=== PATIENT | female | born 1970 ===

== ENCOUNTER 2020-07-15 15:08 | Inpatient (IN) | payer OTHER ==
[~2020-07-15] VITALS: Ht 160 cm; Wt 87.3 kg
[2020-07-15] MEDS ORDERED: AZITHROMYCIN 500 MG in SODIUM CHLORIDE 0.9% 250 ML IV ONE (17:30)
[2020-07-15] MEDS ORDERED: CEFTRIAXONE PMX 1GM/50ML 50 ML IV ONE (17:30)
[2020-07-15] MEDS ORDERED: CEFTRIAXONE PMX 1GM/50ML 50 ML ONE (17:42)
[2020-07-15 17:48] LABS: BASOPHILS % (AUTO) 0 % (0-1); EOSINOPHILS % (AUTO) 0 % (1-7); LYMPHOCYTES % (AUTO) 11 % (22-44); MEAN CORPUSCULAR HGB CONC 30.5 g/dL (32.4-35.8); MEAN PLATELET VOLUME 8.1 fL (7.4-10.4); MONOCYTES % (AUTO) 7 % (2-9); NEUTROPHILS % (AUTO) 82 % (42-75); PLATELET COUNT 354 x10^3/uL (130-400); RED CELL DISTRIBUTION WIDTH 22.1 % (9.6-15.2)
[2020-07-15 17:51] LABS: ANION GAP 8 mmol/L (5-15); CALCIUM 8.5 mg/dL (8.5-10.1); CHLORIDE 106 mmol/L (98-107)
[2020-07-15 17:54] LABS: ALANINE AMINOTRANSFERASE 27 U/L (12-78); ALKALINE PHOSPHATASE 133 U/L (45-117); BILIRUBIN,TOTAL 0.4 mg/dL (0.2-1.0); CREATININE 0.81 mg/dL (0.55-1.02); TOTAL PROTEIN 7.4 g/dL (6.4-8.2)
[2020-07-15 18:30] LABS: MD MORPH REVIEW ONLY
[2020-07-15 18:31] LABS: ANISOCYTOSIS 1+; MICROCYTOSIS 1+; OVALOCYTES 1+; POLYCHROMASIA 1+
[2020-07-15 18:32] LABS: <PLATELET ESTIMATE> ADEQUATE; <PLT MORPHOLOGY> NORMAL PLT MORPH; TEAR DROPS 1+
[2020-07-15] MEDS ORDERED: PHARMACY MAY ADJ FOR RENAL FX MC PRN (19:30)
[2020-07-15] MEDS ORDERED: ADAL40KI SQ (20:01)
[2020-07-15] MEDS ORDERED: METH2.5T PO (20:01)
[2020-07-15] MEDS ORDERED: IRON1TAB60 PO (20:01)
[2020-07-15] MEDS ORDERED: FLUO10CA15 PO (20:02)
[2020-07-15 20:51] VITALS: BP 140/81
[2020-07-15] MEDS: ASCORBIC ACID 500 MG TABLET PO SCH (21:25)
[2020-07-15] MEDS: ACETAMINOPHEN 325 MG TABLET PO PRN (21:25)
[2020-07-15] MEDS ORDERED: POTASSIUM CHLORIDE 20 MEQ TAB.ER.PRT PO ONE (22:00)
[2020-07-15 22:18] LABS: % IRON SATURATION 5 % (20-55); IRON LEVEL 24 mcg/dL (50-170); TOTAL IRON BINDING CAPACITY 440 mcg/dL (250-450)
[2020-07-15] MEDS ORDERED: METHOTREXATE 2.5 MG TABLET PO SCH (22:30)
[2020-07-15] MEDS: methylPREDNISolone SOD SUCC 40 MG/ML IV SCH (22:33)
[2020-07-16 02:00] VITALS: BP 122/78
[2020-07-16 05:08] LABS: BASOPHILS % (AUTO) 0 % (0-1); EOSINOPHILS % (AUTO) 0 % (1-7); LYMPHOCYTES % (AUTO) 6 % (22-44); MEAN CORPUSCULAR HEMOGLOBIN 22.1 pg (27.0-34.8); MEAN CORPUSCULAR HGB CONC 30.9 g/dL (32.4-35.8); MEAN PLATELET VOLUME 7.6 fL (7.4-10.4); MONOCYTES % (AUTO) 2 % (2-9); NEUTROPHILS % (AUTO) 92 % (42-75); PLATELET COUNT 344 x10^3/uL (130-400); RED BLOOD COUNT 4.33 x10^6/uL (3.82-5.3)
[2020-07-16 05:14] LABS: ALBUMIN 3.1 g/dL (3.4-5.0); ANION GAP 6 mmol/L (5-15); CALCIUM 8.7 mg/dL (8.5-10.1); CHLORIDE 110 mmol/L (98-107)
[2020-07-16 05:21] LABS: MD SCAN
[2020-07-16 05:22] LABS: ALANINE AMINOTRANSFERASE 25 U/L (12-78); ALKALINE PHOSPHATASE 123 U/L (45-117); BILIRUBIN,TOTAL 0.3 mg/dL (0.2-1.0); CREATININE 0.54 mg/dL (0.55-1.02); TOTAL PROTEIN 7.3 g/dL (6.4-8.2)
[2020-07-16] MEDS: methylPREDNISolone SOD SUCC 40 MG/ML IV SCH (05:51)
[2020-07-16] MEDS: FLUTICASONE/VILANTEROL 100-25MCG/INH INH SCH (06:37)
[2020-07-16 07:55] VITALS: BP 126/76
[2020-07-16] MEDS: ASCORBIC ACID 500 MG TABLET PO SCH ×2 (08:49→20:35)
[2020-07-16] MEDS: ENOXAPARIN 40 MG/0.4 ML SQ SCH (08:49)
[2020-07-16] MEDS: ZINC SULFATE 220 MG CAPSULE PO SCH (08:49)
[2020-07-16] MEDS: FLUOXETINE 10 MG CAP PO SCH (08:49)
[2020-07-16] MEDS: ACETAMINOPHEN 325 MG TABLET PO PRN (11:24)
[2020-07-16 12:06] VITALS: BP 121/62
[2020-07-16] MEDS ORDERED: OMNIPAQUE 350 MG/ML, 100ML BOTTLE ONE (13:22)
[2020-07-16] MEDS ORDERED: CEFTRIAXONE PMX 1GM/50ML 50 ML IV SCH (18:00)
[2020-07-16] MEDS ORDERED: AZITHROMYCIN 500 MG in SODIUM CHLORIDE 0.9% 250 ML IV SCH (18:30)
[2020-07-16 19:46] VITALS: BP 125/83
[2020-07-16] MEDS: MELATONIN 5 MG TABLET PO PRN (21:21)
[2020-07-17 00:57] VITALS: BP 132/74
[2020-07-17 06:21] LABS: ANION GAP 6 mmol/L (5-15); CALCIUM 8.8 mg/dL (8.5-10.1); CHLORIDE 109 mmol/L (98-107)
[2020-07-17 06:42] LABS: BASOPHILS % (AUTO) 0 % (0-1); EOSINOPHILS % (AUTO) 1 % (1-7); LYMPHOCYTES % (AUTO) 17 % (22-44); MEAN CORPUSCULAR HEMOGLOBIN 22.2 pg (27.0-34.8); MEAN CORPUSCULAR HGB CONC 30.6 g/dL (32.4-35.8); MONOCYTES % (AUTO) 4 % (2-9); NEUTROPHILS % (AUTO) 79 % (42-75); PLATELET COUNT 351 x10^3/uL (130-400); RED BLOOD COUNT 4.08 x10^6/uL (3.82-5.3); RED CELL DISTRIBUTION WIDTH 21.4 % (9.6-15.2)
[2020-07-17 06:44] LABS: MD NO
[2020-07-17 07:01] VITALS: BP 117/77
[2020-07-17] MEDS: FLUTICASONE/VILANTEROL 100-25MCG/INH INH SCH (09:30)
[2020-07-17] MEDS: FLUOXETINE 10 MG CAP PO SCH (09:59)
[2020-07-17] MEDS: AMPICILLIN/SULBACTAM 3 GM in SODIUM CHLORIDE 0.9% 100 ML IV SCH ×3 (09:59→21:16)
[2020-07-17] MEDS: ASCORBIC ACID 500 MG TABLET PO SCH ×2 (09:59→21:16)
[2020-07-17] MEDS ORDERED: POTASSIUM CHLORIDE 20 MEQ TAB.ER.PRT PO ONE (10:00)
[2020-07-17] MEDS: ZINC SULFATE 220 MG CAPSULE PO SCH (10:00)
[2020-07-17] MEDS: ENOXAPARIN 40 MG/0.4 ML SQ SCH (10:01)
[2020-07-17] MEDS: ACETAMINOPHEN 325 MG TABLET PO PRN ×2 (10:02→18:53)
[2020-07-17 12:45] VITALS: BP 107/71
[2020-07-17] MEDS: DOXYCYCLINE 100MG TABLET PO SCH ×2 (12:57→21:16)
[2020-07-17] MEDS: FERROUS SULFATE 325 MG TABLET PO SCH (16:33)
[2020-07-17] MEDS ORDERED: SODIUM CHLORIDE INHALATION 7%, 4 ML NPPB ONE (16:55)
[2020-07-17 19:24] VITALS: BP 118/78
[2020-07-17] MEDS: MELATONIN 5 MG TABLET PO PRN (21:17)
[2020-07-17] MEDS: HYDROcodone/APAP 5/325 TABLET PO PRN (21:21)
[2020-07-18 00:26] VITALS: BP 119/77
[2020-07-18] MEDS: AMPICILLIN/SULBACTAM 3 GM in SODIUM CHLORIDE 0.9% 100 ML IV SCH ×4 (03:21→20:08)
[2020-07-18] MEDS: ASCORBIC ACID 500 MG TABLET PO SCH ×2 (07:30→20:15)
[2020-07-18] MEDS: ZINC SULFATE 220 MG CAPSULE PO SCH (07:30)
[2020-07-18] MEDS: ENOXAPARIN 40 MG/0.4 ML SQ SCH (07:31)
[2020-07-18] MEDS: DOXYCYCLINE 100MG TABLET PO SCH ×2 (07:31→20:15)
[2020-07-18] MEDS: HYDROcodone/APAP 5/325 TABLET PO PRN ×3 (07:31→20:15)
[2020-07-18] MEDS: FLUOXETINE 10 MG CAP PO SCH (07:31)
[2020-07-18 07:58] VITALS: BP 113/73
[2020-07-18 08:32] LABS: ANION GAP 6 mmol/L (5-15); CALCIUM 8.5 mg/dL (8.5-10.1); CHLORIDE 104 mmol/L (98-107); CREATININE 0.59 mg/dL (0.55-1.02)
[2020-07-18] MEDS: FLUTICASONE/VILANTEROL 100-25MCG/INH INH SCH (09:00)
[2020-07-18 12:23] VITALS: BP 116/79
[2020-07-18] MEDS: FERROUS SULFATE 325 MG TABLET PO SCH (16:23)
[2020-07-18] MEDS: MELATONIN 5 MG TABLET PO PRN (20:15)
[2020-07-18 20:17] VITALS: BP 106/70
[2020-07-19 01:56] VITALS: BP 101/65
[2020-07-19] MEDS: AMPICILLIN/SULBACTAM 3 GM in SODIUM CHLORIDE 0.9% 100 ML IV SCH ×4 (03:45→20:36)
[2020-07-19 07:00] VITALS: BP 125/72
[2020-07-19] MEDS: DOXYCYCLINE 100MG TABLET PO SCH ×2 (10:47→20:37)
[2020-07-19] MEDS: ZINC SULFATE 220 MG CAPSULE PO SCH (10:47)
[2020-07-19] MEDS: ASCORBIC ACID 500 MG TABLET PO SCH ×2 (10:47→20:36)
[2020-07-19] MEDS: ENOXAPARIN 40 MG/0.4 ML SQ SCH (10:47)
[2020-07-19] MEDS: FLUOXETINE 10 MG CAP PO SCH (10:47)
[2020-07-19 12:14] VITALS: BP 111/62
[2020-07-19] MEDS: FERROUS SULFATE 325 MG TABLET PO SCH (15:53)
[2020-07-19] MEDS: HYDROcodone/APAP 5/325 TABLET PO PRN ×2 (15:53→20:37)
[2020-07-19 19:31] VITALS: BP 96/66
[2020-07-19] MEDS: MELATONIN 5 MG TABLET PO PRN (20:37)
[2020-07-20 01:36] VITALS: BP 105/69
[2020-07-20] MEDS: AMPICILLIN/SULBACTAM 3 GM in SODIUM CHLORIDE 0.9% 100 ML IV SCH ×4 (03:36→22:05)
[2020-07-20] MEDS: HYDROcodone/APAP 5/325 TABLET PO PRN ×3 (03:36→20:07)
[2020-07-20 07:11] VITALS: BP 109/74
[2020-07-20] MEDS: FLUTICASONE/VILANTEROL 100-25MCG/INH INH SCH (09:00)
[2020-07-20] MEDS: ENOXAPARIN 40 MG/0.4 ML SQ SCH (10:00)
[2020-07-20] MEDS: DOXYCYCLINE 100MG TABLET PO SCH ×2 (10:00→20:01)
[2020-07-20] MEDS: ASCORBIC ACID 500 MG TABLET PO SCH (10:00)
[2020-07-20] MEDS: FLUOXETINE 10 MG CAP PO SCH (10:00)
[2020-07-20] MEDS: ZINC SULFATE 220 MG CAPSULE PO SCH (10:00)
[2020-07-20 12:25] VITALS: BP 115/78
[2020-07-20] MEDS: FERROUS SULFATE 325 MG TABLET PO SCH (16:47)
[2020-07-20] MEDS: SULFAMETH./TRIMETHOPRIM 20 ML in DEXTROSE 5% 500 ML IV SCH (18:38)
[2020-07-20 19:28] VITALS: BP 106/70
[2020-07-21 00:37] VITALS: BP 109/72
[2020-07-21] MEDS: SULFAMETH./TRIMETHOPRIM 20 ML in DEXTROSE 5% 500 ML IV SCH ×4 (00:39→20:22)
[2020-07-21] MEDS: AMPICILLIN/SULBACTAM 3 GM in SODIUM CHLORIDE 0.9% 100 ML IV SCH ×4 (04:52→22:37)
[2020-07-21] MEDS: FLUTICASONE/VILANTEROL 100-25MCG/INH INH SCH (08:03)
[2020-07-21 08:51] VITALS: BP 121/64
[2020-07-21] MEDS: DEXTROSE 5% IV SCH (10:13)
[2020-07-21] MEDS: FLUOXETINE 10 MG CAP PO SCH (10:13)
[2020-07-21] MEDS: VORICONAZOLE IV SCH (10:13)
[2020-07-21] MEDS: ENOXAPARIN 40 MG/0.4 ML SQ SCH (10:13)
[2020-07-21] MEDS: DOXYCYCLINE 100MG TABLET PO SCH ×2 (10:13→20:35)
[2020-07-21] MEDS: HYDROcodone/APAP 5/325 TABLET PO PRN (10:14)
[2020-07-21] MEDS: ONDANSETRON 2MG/ML, 2ML IVPush PRN ×2 (12:36→18:34)
[2020-07-21 15:42] VITALS: BP 136/81
[2020-07-21] MEDS: FERROUS SULFATE 325 MG TABLET PO SCH (17:05)
[2020-07-21 20:00] VITALS: BP 134/83
[2020-07-22] MEDS: MELATONIN 5 MG TABLET PO PRN (00:23)
[2020-07-22] MEDS: DEXTROSE 5% IV SCH (00:58)
[2020-07-22] MEDS: VORICONAZOLE IV SCH (00:58)
[2020-07-22 01:47] VITALS: BP 123/79
[2020-07-22] MEDS: SULFAMETH./TRIMETHOPRIM 20 ML in DEXTROSE 5% 500 ML IV SCH ×4 (03:19→23:17)
[2020-07-22] MEDS: AMPICILLIN/SULBACTAM 3 GM in SODIUM CHLORIDE 0.9% 100 ML IV SCH ×4 (04:47→23:17)
[2020-07-22 06:45] VITALS: BP 126/82
[2020-07-22] MEDS: DOXYCYCLINE 100MG TABLET PO SCH ×2 (09:08→20:26)
[2020-07-22] MEDS: VORICONAZOLE 200 MG TABLET PO SCH ×2 (09:08→20:26)
[2020-07-22] MEDS: FLUOXETINE 10 MG CAP PO SCH (09:09)
[2020-07-22] MEDS: ENOXAPARIN 40 MG/0.4 ML SQ SCH (09:09)
[2020-07-22] MEDS: FLUTICASONE/VILANTEROL 100-25MCG/INH INH SCH (09:34)
[2020-07-22 10:39] LABS: BASOPHILS % (AUTO) 0 % (0-1); EOSINOPHILS % (AUTO) 0 % (1-7); LYMPHOCYTES % (AUTO) 7 % (22-44); MEAN CORPUSCULAR HGB CONC 30.6 g/dL (32.4-35.8); MEAN PLATELET VOLUME 7.5 fL (7.4-10.4); MONOCYTES % (AUTO) 4 % (2-9); NEUTROPHILS % (AUTO) 89 % (42-75); PLATELET COUNT 474 x10^3/uL (130-400); RED CELL DISTRIBUTION WIDTH 21.3 % (9.6-15.2)
[2020-07-22 10:40] LABS: MD NO
[2020-07-22 10:52] LABS: ALANINE AMINOTRANSFERASE 162 U/L (12-78); ALBUMIN 2.9 g/dL (3.4-5.0); ANION GAP 7 mmol/L (5-15); CALCIUM 8.9 mg/dL (8.5-10.1); CHLORIDE 105 mmol/L (98-107); CREATININE 0.75 mg/dL (0.55-1.02)
[2020-07-22 10:54] LABS: ALKALINE PHOSPHATASE 159 U/L (45-117); BILIRUBIN,TOTAL 0.2 mg/dL (0.2-1.0); TOTAL PROTEIN 7.1 g/dL (6.4-8.2)
[2020-07-22 12:08] VITALS: BP 144/80
[2020-07-22] MEDS: FERROUS SULFATE 325 MG TABLET PO SCH (16:40)
[2020-07-22 19:27] VITALS: BP 115/73
[2020-07-23 00:11] VITALS: BP 117/69
[2020-07-23] MEDS: AMPICILLIN/SULBACTAM 3 GM in SODIUM CHLORIDE 0.9% 100 ML IV SCH (04:38)
[2020-07-23] MEDS: SULFAMETH./TRIMETHOPRIM 20 ML in DEXTROSE 5% 500 ML IV SCH (05:08)
[2020-07-23 05:28] LABS: BASOPHILS % (AUTO) 0 % (0-1); EOSINOPHILS % (AUTO) 0 % (1-7); LYMPHOCYTES % (AUTO) 11 % (22-44); MEAN CORPUSCULAR HEMOGLOBIN 22.6 pg (27.0-34.8); MEAN CORPUSCULAR HGB CONC 31.2 g/dL (32.4-35.8); MEAN PLATELET VOLUME 7.5 fL (7.4-10.4); MONOCYTES % (AUTO) 3 % (2-9); NEUTROPHILS % (AUTO) 85 % (42-75); PLATELET COUNT 503 x10^3/uL (130-400); RED BLOOD COUNT 4.28 x10^6/uL (3.82-5.3); RED CELL DISTRIBUTION WIDTH 21.6 % (9.6-15.2)
[2020-07-23 05:29] LABS: MD NO
[2020-07-23 05:39] LABS: ANION GAP 8 mmol/L (5-15); CALCIUM 8.7 mg/dL (8.5-10.1); CHLORIDE 107 mmol/L (98-107)
[2020-07-23 05:44] LABS: ALANINE AMINOTRANSFERASE 169 U/L (12-78); ALKALINE PHOSPHATASE 148 U/L (45-117); BILIRUBIN,TOTAL 0.2 mg/dL (0.2-1.0); CREATININE 0.74 mg/dL (0.55-1.02); TOTAL PROTEIN 7.1 g/dL (6.4-8.2)
[2020-07-23] MEDS: FLUTICASONE/VILANTEROL 100-25MCG/INH INH SCH (06:38)
[2020-07-23 07:41] VITALS: BP 128/73
[2020-07-23] MEDS ORDERED: FENTANYL PF 100 MCG/2ML ONE ×2 (08:12)
[2020-07-23] MEDS ORDERED: MIDAZOLAM 1 MG/ML, 5ML ONE (08:12)
[2020-07-23] MEDS ORDERED: CHLORHEXIDINE 15 ML UDC ONE (08:33)
[2020-07-23] MEDS: DOXYCYCLINE 100MG TABLET PO SCH ×2 (09:00→20:35)
[2020-07-23] MEDS: FLUOXETINE 10 MG CAP PO SCH ×2 (09:00→11:58)
[2020-07-23 10:30] VITALS: BP 107/68
[2020-07-23] MEDS: ENOXAPARIN 40 MG/0.4 ML SQ SCH (11:58)
[2020-07-23 12:34] VITALS: BP 110/70
[2020-07-23] MEDS: FERROUS SULFATE 325 MG TABLET PO SCH (16:12)
[2020-07-23 19:25] VITALS: BP 119/75
[2020-07-23] MEDS: MELATONIN 5 MG TABLET PO PRN (20:38)
[2020-07-24 00:35] VITALS: BP 115/76
[2020-07-24 05:22] LABS: CHLORIDE 105 mmol/L (98-107)
[2020-07-24 05:29] LABS: ALANINE AMINOTRANSFERASE 115 U/L (12-78); ALBUMIN 2.8 g/dL (3.4-5.0); ALKALINE PHOSPHATASE 131 U/L (45-117); ANION GAP 7 mmol/L (5-15); BILIRUBIN,TOTAL 0.2 mg/dL (0.2-1.0); CALCIUM 8.3 mg/dL (8.5-10.1); CREATININE 0.74 mg/dL (0.55-1.02); TOTAL PROTEIN 6.4 g/dL (6.4-8.2)
[2020-07-24 05:30] LABS: BASOPHILS % (AUTO) 0 % (0-1); EOSINOPHILS % (AUTO) 0 % (1-7); LYMPHOCYTES % (AUTO) 33 % (22-44); MEAN CORPUSCULAR HGB CONC 30.6 g/dL (32.4-35.8); MEAN PLATELET VOLUME 7.6 fL (7.4-10.4); MONOCYTES % (AUTO) 9 % (2-9); NEUTROPHILS % (AUTO) 58 % (42-75); PLATELET COUNT 446 x10^3/uL (130-400); RED BLOOD COUNT 4.13 x10^6/uL (3.82-5.3); RED CELL DISTRIBUTION WIDTH 21.2 % (9.6-15.2)
[2020-07-24 06:34] LABS: ANISOCYTOSIS 2+; HYPOCHROMIA 1+; MD MORPH REVIEW ONLY; MICROCYTOSIS 1+; OVALOCYTES 2+
[2020-07-24 06:35] LABS: <PLATELET ESTIMATE> INCREASED; <PLT MORPHOLOGY> NORMAL PLT MORPH; POLYCHROMASIA 1+
[2020-07-24 08:05] VITALS: BP 122/83
[2020-07-24] MEDS: FLUTICASONE/VILANTEROL 100-25MCG/INH INH SCH (08:54)
[2020-07-24] MEDS: ENOXAPARIN 40 MG/0.4 ML SQ SCH (09:25)
[2020-07-24] MEDS: FLUOXETINE 10 MG CAP PO SCH (09:25)
[2020-07-24] MEDS: DOXYCYCLINE 100MG TABLET PO SCH ×2 (09:25→21:33)
[2020-07-24 14:33] VITALS: BP 120/78
[2020-07-24] MEDS: FERROUS SULFATE 325 MG TABLET PO SCH (17:34)
[2020-07-24 19:22] VITALS: BP 104/66
[2020-07-24] MEDS: MELATONIN 5 MG TABLET PO PRN (21:41)
[2020-07-24] MEDS: ACETAMINOPHEN 325 MG TABLET PO PRN (21:41)
[2020-07-25 01:49] VITALS: BP 138/85
[2020-07-25 06:21] LABS: BASOPHILS % (AUTO) 0 % (0-1); EOSINOPHILS % (AUTO) 4 % (1-7); LYMPHOCYTES % (AUTO) 42 % (22-44); MEAN CORPUSCULAR HEMOGLOBIN 22.3 pg (27.0-34.8); MEAN CORPUSCULAR HGB CONC 30.7 g/dL (32.4-35.8); MEAN PLATELET VOLUME 7.6 fL (7.4-10.4); MONOCYTES % (AUTO) 12 % (2-9); NEUTROPHILS % (AUTO) 42 % (42-75); PLATELET COUNT 442 x10^3/uL (130-400); RED BLOOD COUNT 4.19 x10^6/uL (3.82-5.3); RED CELL DISTRIBUTION WIDTH 21.2 % (9.6-15.2)
[2020-07-25 06:23] LABS: ALANINE AMINOTRANSFERASE 83 U/L (12-78); ALBUMIN 2.7 g/dL (3.4-5.0); ANION GAP 7 mmol/L (5-15); CALCIUM 8.4 mg/dL (8.5-10.1); CHLORIDE 107 mmol/L (98-107); CREATININE 0.61 mg/dL (0.55-1.02)
[2020-07-25 06:25] LABS: ALKALINE PHOSPHATASE 128 U/L (45-117); BILIRUBIN,TOTAL 0.3 mg/dL (0.2-1.0); TOTAL PROTEIN 6.2 g/dL (6.4-8.2)
[2020-07-25 06:40] LABS: MD NO
[2020-07-25 08:17] VITALS: BP 112/67
[2020-07-25] MEDS ORDERED: POTASSIUM CHLORIDE 20 MEQ TAB.ER.PRT PO ONE (08:30)
[2020-07-25] MEDS: FLUOXETINE 10 MG CAP PO SCH (09:10)
[2020-07-25] MEDS: FERROUS SULFATE 325 MG TABLET PO SCH ×2 (09:10→17:09)
[2020-07-25] MEDS: DOXYCYCLINE 100MG TABLET PO SCH ×2 (09:10→20:28)
[2020-07-25] MEDS: ENOXAPARIN 40 MG/0.4 ML SQ SCH (09:11)
[2020-07-25] MEDS: FLUTICASONE/VILANTEROL 100-25MCG/INH INH SCH (09:34)
[2020-07-25 12:51] VITALS: BP 112/71
[2020-07-25 19:30] VITALS: BP 110/71
[2020-07-25] MEDS: MELATONIN 5 MG TABLET PO PRN (20:28)
[2020-07-25] MEDS: ACETAMINOPHEN 325 MG TABLET PO PRN (20:28)
[2020-07-26 03:55] VITALS: BP 134/78
[2020-07-26 06:12] LABS: CHLORIDE 110 mmol/L (98-107)
[2020-07-26 06:16] LABS: ANION GAP 4 mmol/L (5-15); CREATININE 0.68 mg/dL (0.55-1.02)
[2020-07-26 06:25] VITALS: BP 112/77
[2020-07-26] MEDS: FLUTICASONE/VILANTEROL 100-25MCG/INH INH SCH (08:15)
[2020-07-26] MEDS: ENOXAPARIN 40 MG/0.4 ML SQ SCH (09:00)
[2020-07-26] MEDS: DOXYCYCLINE 100MG TABLET PO SCH ×2 (09:09→20:01)
[2020-07-26] MEDS: FLUOXETINE 10 MG CAP PO SCH (09:09)
[2020-07-26] MEDS ORDERED: FLUCONAZOLE 400 MG/200 ML 200 ML IV SCH (11:00)
[2020-07-26 11:12] LABS: ALANINE AMINOTRANSFERASE 69 U/L (12-78); ALBUMIN 3.2 g/dL (3.4-5.0); ALKALINE PHOSPHATASE 135 U/L (45-117); BILIRUBIN,TOTAL 0.2 mg/dL (0.2-1.0); TOTAL PROTEIN 7.4 g/dL (6.4-8.2)
[2020-07-26 11:13] LABS: BILIRUBIN, DIRECT < 0.1 mg/dL (0.1-0.2); BILIRUBIN,INDIRECT 0.1 mg/dL (0.0-2.0)
[2020-07-26 13:50] VITALS: BP 133/84
[2020-07-26 19:43] VITALS: BP 125/82
[2020-07-27 00:20] VITALS: BP 110/70
[2020-07-27] MEDS: ACETAMINOPHEN 325 MG TABLET PO PRN ×2 (03:56→21:15)
[2020-07-27 06:41] VITALS: BP 130/84
[2020-07-27] MEDS: ENOXAPARIN 40 MG/0.4 ML SQ SCH (08:08)
[2020-07-27] MEDS: FERROUS SULFATE 325 MG TABLET PO SCH (08:08)
[2020-07-27] MEDS: FLUOXETINE 10 MG CAP PO SCH (08:09)
[2020-07-27] MEDS: DOXYCYCLINE 100MG TABLET PO SCH ×2 (08:09→21:12)
[2020-07-27] MEDS: FLUTICASONE/VILANTEROL 100-25MCG/INH INH SCH (08:35)
[2020-07-27] MEDS: FLUCONAZOLE 200 MG TABLET PO SCH (11:01)
[2020-07-27 11:38] VITALS: BP 117/81
[2020-07-27 18:48] VITALS: BP 114/77
[2020-07-27] MEDS: MELATONIN 5 MG TABLET PO PRN (21:12)
[2020-07-28 02:52] VITALS: BP 99/63
[2020-07-28 05:21] LABS: CHLORIDE 105 mmol/L (98-107)
[2020-07-28 05:31] LABS: ALANINE AMINOTRANSFERASE 50 U/L (12-78); ALBUMIN 2.9 g/dL (3.4-5.0); ALKALINE PHOSPHATASE 110 U/L (45-117); ANION GAP 6 mmol/L (5-15); BILIRUBIN,TOTAL 0.6 mg/dL (0.2-1.0); CALCIUM 8.6 mg/dL (8.5-10.1); CREATININE 0.59 mg/dL (0.55-1.02); TOTAL PROTEIN 6.6 g/dL (6.4-8.2)
[2020-07-28 07:03] VITALS: BP 101/69
[2020-07-28] MEDS: FLUCONAZOLE 200 MG TABLET PO SCH (08:16)
[2020-07-28] MEDS: FLUOXETINE 10 MG CAP PO SCH (08:16)
[2020-07-28] MEDS: DOXYCYCLINE 100MG TABLET PO SCH (08:16)
[2020-07-28] MEDS: ENOXAPARIN 40 MG/0.4 ML SQ SCH (08:16)
[2020-07-28] MEDS: FLUTICASONE/VILANTEROL 100-25MCG/INH INH SCH (10:10)
[2020-07-28] MEDS ORDERED: METH2.5T PO (10:14)
[2020-07-28] MEDS ORDERED: ADAL40KI SQ (10:14)
[2020-07-28] MEDS ORDERED: DOXY100T PO ×2 (10:14)
[2020-07-28] MEDS ORDERED: FLUC200T PO (10:14)
[2020-07-28] MEDS ORDERED: FLUT1AER INH (10:14)
[2020-07-28] MEDS ORDERED: FERR-51 PO (10:14)
== END 2020-07-28 14:10 | disposition home or self-care (01) | DRG 871 ==
LOC: ED 15:38 → EDIP 20:40 → 4WST 20:41
PROVIDERS: ADMIT Internal Medicine; ATTEND Internal Medicine
PROC: 0B9F8ZX Drainage of Right Lower Lung Lobe, Via Natural or Artificial Opening Endoscopic, Diagnostic (ICD-10-PCS; 2020-07-23)
PROC: 0B9D8ZX Drainage of Right Middle Lung Lobe, Via Natural or Artificial Opening Endoscopic, Diagnostic (ICD-10-PCS; principal; 2020-07-23 08:30)
DX: A41.9 Sepsis, unspecified organism (principal); J96.01 Acute respiratory failure with hypoxia; J18.9 Pneumonia, unspecified organism; B38.2 Pulmonary coccidioidomycosis, unspecified; D84.821 Immunodeficiency due to drugs; D50.9 Iron deficiency anemia, unspecified; E66.9 Obesity, unspecified; E83.51 Hypocalcemia; E87.6 Hypokalemia; F32.9 Major depressive disorder, single episode, unspecified; K75.9 Inflammatory liver disease, unspecified; G47.00 Insomnia, unspecified; M06.9 Rheumatoid arthritis, unspecified; Z20.822 Contact with and (suspected) exposure to COVID-19; Z79.899 Other long term (current) drug therapy; Z68.34 Body mass index [BMI] 34.0-34.9, adult; T36.8X5A Adverse effect of other systemic antibiotics, initial encounter
CPT/HCPCS: 31624; 36415; 36600; 71045; 71046; 71250; 71275; 76700; 80048; 80053; 80076; 82330; 82728; 82803; 83540; 83550; 83605; 83615; 83735; 84100; 84145; 85025; 85379; 86480; 86612; 86631; 86632; 86635; 86738; 87015; 87040; 87070; 87102; 87116; 87205; 87206; 87281; 87305; 87385; 87449; 87486; 87581; 87633; 87635; 87798; 87806; 88112; 88305; 93005; 93306; 94640; 94667; 96374; 99152; 99153; 99285; G0378; J0295; J0456; J0696; J1450; J1650; J2250; J2405; J3010; J3465; J8610; Q9967; G0475; J2920; J7050; J7060; J7512; U0003